=== PATIENT | male | born 2000 | race Caucasian/White ===

== ENCOUNTER 2022-02-26 07:55 | Emergency (ER) | payer OTHER ==
[~2022-02-26] VITALS: Ht 185.4 cm; Wt 99.4 kg
[2022-02-26 08:03] VITALS: BP 149/67
--- NOTE | 2022-02-26 08:10 | NUR ---
Patient ambulated to bed 4 with steady gait.
[2022-02-26] MEDS ORDERED: IBUPROFEN 600 MG TAB PO ONE (08:25)
--- NOTE | 2022-02-26 08:38 | NUR ---
PATIENT PRESENTS TO ED WITH LEFT SHOULDER PAIN . PT STATES . DENIES N/V/D; SKIN IS PINK/WARM/DRY; AAOX4 WITH EVEN AND STEADY GAIT; LUNGS CLEAR BL; HR EVEN AND REGULAR; PT DENIES ANY FEVER, CP, SOB, OR COUGH AT THIS TIME; PATIENT STATES PAIN OF 0/10 AT THIS TIME; VSS; PATIENT POSITIONED FOR COMFORT; HOB ELEVATED; BEDRAILS UP X2; BED DOWN. ER MD MADE AWARE OF PT STATUS.
--- NOTE | 2022-02-26 08:39 | NUR ---
TO XRAY VIA WC, WITH TECH.
[2022-02-26] MEDS ORDERED: CYCL-711 PO (08:52)
[2022-02-26] MEDS ORDERED: IBUP-1842 PO (08:52)
[2022-02-26] MEDS ORDERED: DICL100G5 TP (08:53)
[2022-02-26 09:00] VITALS: BP 122/59
--- NOTE | 2022-02-26 09:00 | NUR ---
Patient discharged with v/s stable. Written and verbal after care instructions given and explained. Patient verbalized understanding. Ambulatory with steady gait. All questions addressed prior to discharge. Advised to follow up with PMD.
== END 2022-02-26 09:00 | disposition home or self-care (01) ==
LOC: MED 07:55
DX: S16.1XXA Strain of muscle, fascia and tendon at neck level, initial encounter (principal); V49.88XA Car occupant (driver) (passenger) injured in other specified transport accidents, initial encounter; Y93.89 Activity, other specified; Y92.89 Other specified places as the place of occurrence of the external cause; Y99.8 Other external cause status
CPT/HCPCS: 71046; 99283